=== PATIENT | female | born 1955 | race Caucasian/White ===

== ENCOUNTER 2018-01-04 08:16 | Day surgery (SDC) | payer MEDICARE ==
[2017-12-30 09:42] VITALS: BMI 28.6
[~2018-01-04 08:16] MED LIST: LACTATED RINGERS 1,000 ML IV SCH; LIDOCAINE 1% 20 ML VIAL (10MG/ML) FOR IV START INTRADERMA PRN
[2018-01-04 09:05] VITALS: RESP 16; TEMP 97.9
--- NOTE | 2018-01-04 09:12 | P.GSHP ---
History of Present Illness H&P Date: 01/04/18 CHIEF COMPLAINT: Colon screen HISTORY OF PRESENT ILLNESS: The patient is a 62-year-old female who presents for colon screen. Lower endoscopy was offered for further evaluation and management. PAST MEDICAL HISTORY: Please see list. PAST SURGICAL HISTORY: Please see list. MEDICATIONS: Please see list. ALLERGIES: Please see list. SOCIAL HISTORY: No illicit drug use FAMILY HISTORY: No reports of Crohn disease or ulcerative colitis. REVIEW OF ORGAN SYSTEMS: CONSTITUTIONAL: No reports of fevers or chills. PHYSICAL EXAM: VITAL SIGNS: Stable GENERAL: Well-developed pleasant in no acute distress. HEENT: No scleral icterus. Extraocular movements grossly intact. Moist buccal mucosa. NECK: Supple without lymphadenopathy. CHEST: Unlabored respirations. Equal bilateral excursions. CARDIOVASCULAR: Regular rate and rhythm. Distal 2+ pulses. ABDOMEN: Soft, nontender, nondistended. MUSCULOSKELETAL: No clubbing, cyanosis, or edema. ASSESSMENT: 1. Colon screen. PLAN: 1. Recommend proceeding with a lower endoscopy Past Medical History Past Medical History: COPD, GERD/Reflux, Hyperlipidemia, Hypertension, Thyroid Disorder Additional Past Medical History / Comment(s): back and shoulderr pain, gout right foot., mosquito bites., frequent nausea with acid reflux, loose stools., left knee pain., occasional lightheadedness. History of Any Multi-Drug Resistant Organisms: None Reported Past Surgical History: Adenoidectomy, Appendectomy, Tonsillectomy Additional Past Surgical History / Comment(s): EGD. COLONOSCOPY. Past Anesthesia/Blood Transfusion Reactions: No Reported Reaction Past Psychological History: Anxiety, Depression Additional Psychological History / Comment(s): spouse passed in october 2017. Smoking Status: Heavy tobacco smoker Past Alcohol Use History: Rare Additional Past Alcohol Use History / Comment(s): SMOKES 1 PPD, SINCE 18 Y OLD. Past Drug Use History: None Reported - Past Family History Mother Family Medical History: Cancer Medications and Allergies Home Medications Medication Instructions Recorded Confirmed Type Levothyroxine Sodium [Synthroid] 25 mcg PO DAILY 10/27/15 01/04/18 History Acetaminophen [Tylenol Extra 1,000 mg PO BID PRN 12/30/17 01/04/18 History Strength] Atorvastatin [Lipitor] 40 mg PO HS 12/30/17 01/04/18 History Lisinopril [Zestril] 10 mg PO DAILY 12/30/17 01/04/18 History Naproxen 500 mg PO BID PRN 12/30/17 01/04/18 History Ondansetron HCl [Zofran] 8 mg PO Q8HR PRN 12/30/17 01/04/18 History Ondansetron [Zofran] 4 mg PO Q8HR PRN 12/30/17 01/04/18 History Pantoprazole [Protonix] 40 mg PO QAM 12/30/17 01/04/18 History traZODone HCL 150 mg PO HS 12/30/17 01/04/18 History Allergies Allergy/AdvReac Type Severity Reaction Status Date / Time No Known Allergies Allergy Verified 01/04/18 08:53 Surgical - Exam Vital Signs Temp Pulse Resp BP Pulse Ox 97.9 F 72 16 176/80 96 01/04/18 09:04 01/04/18 09:04 01/04/18 09:04 01/04/18 09:04 01/04/18 09:04
[2018-01-04] MEDS ORDERED: MIDAZOLAM 2 MG/2 ML VIAL ONE (09:49)
[2018-01-04] MEDS ORDERED: LIDOCAINE 1% INJ 10MG/ML (20 ML MDV) ONE (09:49)
[2018-01-04] MEDS ORDERED: PROPOFOL 10 MG/ML 20 ML VIAL IV ONE (09:49)
[2018-01-04] MEDS ORDERED: fentaNYL (PF) 50 MCG/ML 2 ML AMP ONE (09:49)
--- NOTE | 2018-01-04 10:13 | P.PCN ---
Date of Procedure: 01/04/18 Description of Procedure: PREOPERATIVE DIAGNOSIS: Family history of malignant polyp Colonoscopy screening POSTOPERATIVE DIAGNOSIS: Family history of malignant polyp Colonoscopy screening Sigmoid diverticulosis OPERATION: Colonoscopy to the ileocecal valve and appendiceal orifice SURGEON: Yolie Noe MD. ANESTHESIA: MAC. INDICATIONS: The patient is a 62-year-old female who presents for colonoscopy screening. Last colonoscopy was between 5-10 years. Benefits and risks were described and informed consent was obtained. DESCRIPTION OF PROCEDURE: The patient had undergone Gatorade, MiraLAX and Dulcolax prep. She had been brought into the operating room and laid in the left lateral decubitus position. After adequate intravenous sedation, the rectum was examined with 2% lidocaine jelly. External hemorrhoids were encountered. The rectal tone was within normal limits. No lesions were palpated in the rectal vault. An Olympus colonoscope was advanced until the ileocecal valve and appendiceal orifice were clearly viewed. The prep was good with clear visualization of the mucosal folds. The scope was removed with visualization of each mucosal fold. Sigmoid diverticulosis was encountered. Small tubular adenoma of the sigmoid colon was briefly viewed however unable to obtain. No evidence of focal colitis was found. Retroflexion of the scope demonstrated grade 1 internal hemorrhoids without active bleeding or inflammation. The colon was desufflated. The patient had tolerated the procedure well. Withdrawal time was over 6 minutes. FINDINGS: Internal hemorrhoids, grade 1 External prolapsed hemorrhoids, grade 1 No arteriovenous malformations Small tubular adenoma of the sigmoid colon was briefly viewed however unable to obtain No focal colitis RECOMMENDATIONS: Recommend repeat colonoscopy in 5 years, 2022. Plan - Discharge Summary New Discharge Prescriptions: No Action Levothyroxine Sodium [Synthroid] 25 mcg PO DAILY traZODone HCL 150 mg PO HS Ondansetron [Zofran] 4 mg PO Q8HR PRN PRN Reason: Nausea Atorvastatin [Lipitor] 40 mg PO HS Lisinopril [Zestril] 10 mg PO DAILY Pantoprazole [Protonix] 40 mg PO QAM Ondansetron HCl [Zofran] 8 mg PO Q8HR PRN PRN Reason: Nausea Naproxen 500 mg PO BID PRN PRN Reason: Pain Acetaminophen [Tylenol Extra Strength] 1,000 mg PO BID PRN PRN Reason: Pain Discharge Medication List Levothyroxine Sodium [Synthroid] 25 mcg PO DAILY 10/27/15 [History] Acetaminophen [Tylenol Extra Strength] 1,000 mg PO BID PRN 12/30/17 [History] Atorvastatin [Lipitor] 40 mg PO HS 12/30/17 [History] Lisinopril [Zestril] 10 mg PO DAILY 12/30/17 [History] Naproxen 500 mg PO BID PRN 12/30/17 [History] Ondansetron HCl [Zofran] 8 mg PO Q8HR PRN 12/30/17 [History] Ondansetron [Zofran] 4 mg PO Q8HR PRN 12/30/17 [History] Pantoprazole [Protonix] 40 mg PO QAM 12/30/17 [History] traZODone HCL 150 mg PO HS 12/30/17 [History]
[2018-01-04 10:33] VITALS: BP 150/77; PULSE 70
== END 2018-01-04 10:43 | disposition home or self-care (01) ==
LOC: ORWHC2ENDO 08:16
PROVIDERS: ATTEND Surgery Plastic and Reconstructive Surgery
DX: Z12.11 Encounter for screening for malignant neoplasm of colon (principal); D12.5 Benign neoplasm of sigmoid colon; K57.30 Diverticulosis of large intestine without perforation or abscess without bleeding; K64.0 First degree hemorrhoids; K64.4 Residual hemorrhoidal skin tags; K21.9 Gastro-esophageal reflux disease without esophagitis; E78.5 Hyperlipidemia, unspecified; I10 Essential (primary) hypertension; J44.9 Chronic obstructive pulmonary disease, unspecified; M10.9 Gout, unspecified; F41.9 Anxiety disorder, unspecified; F32.9 Major depressive disorder, single episode, unspecified; F17.210 Nicotine dependence, cigarettes, uncomplicated; E07.9 Disorder of thyroid, unspecified; Z79.899 Other long term (current) drug therapy; Z83.71 Family history of colonic polyps
CPT/HCPCS: J2250; J2001; J3010; J2704; G0105

== ENCOUNTER → 2018-01-24 | Outpatient (CLI) | payer MEDICARE ==
--- NOTE | 2018-01-24 13:41 | XR ---
Left knee HISTORY: Pain 3 views of the left knee No comparisons Bone mineralization, joint spaces and alignment are maintained. No fracture or dislocation. No eviden t joint effusion. IMPRESSION: No significant abnormality is evident.
== END ==
LOC: RADXRMAIN 09:58
PROVIDERS: ATTEND Family Medicine
DX: M25.562 Pain in left knee (principal)